=== PATIENT | female | born 1965 | race Caucasian/White ===

== ENCOUNTER 2024-11-21 06:42 | Day surgery (SDC) | payer OTHER ==
[2024-11-17 11:36] VITALS: BMI 27.2
[2024-11-21] MEDS ORDERED: ACETAMINOPHEN INJECTION 100 ML ONE (08:47)
[2024-11-21] MEDS ORDERED: LACTATED RINGERS SOLUTION 1,000 ML IV SCH (11:30)
[2024-11-21] MEDS ORDERED: MIDAZOLAM HCL 2 MG/2 ML SINGLE DOSE VIAL ONE (11:46)
[2024-11-21] MEDS ORDERED: PROPOFOL 20 ML ONE (11:53)
[2024-11-21] MEDS ORDERED: ONDANSETRON 4 MG/2 ML VIAL ONE (12:13)
[2024-11-21] MEDS ORDERED: KETOROLAC TROMETHAMINE 30 MG/1 ML VIAL ONE (12:13)
[2024-11-21] MEDS ORDERED: IBUPROFEN 600 MG TABLET (FP) PO PRN (12:27)
[2024-11-21] MEDS ORDERED: oxyCODONE HCL 5 MG TABLET PO PRN (12:27)
[2024-11-21] MEDS ORDERED: ONDANSETRON 4 MG/2 ML VIAL IVPUSH PRN (12:27)
[2024-11-21] MEDS ORDERED: IBUPROFEN 800 MG/8 ML IJ IVPB PRN (12:27)
[2024-11-21] MEDS ORDERED: ELECTROLYTE-148 SOLN 1,000 ML IV SCH (12:30)
[2024-11-21 13:27] VITALS: RESP 18
[2024-11-21 15:58] VITALS: BP 126/67; PULSE 60; TEMP 97.8
== END 2024-11-21 14:40 | disposition home or self-care (01) ==
LOC: JASU-SURG 06:42
PROVIDERS: ATTEND Obstetrics & Gynecology
PROC: 0UB98ZZ Excision of Uterus, Via Natural or Artificial Opening Endoscopic (ICD-10-PCS; principal; 2024-11-21 11:00)
DX: N95.0 Postmenopausal bleeding (principal); N84.0 Polyp of corpus uteri
CPT/HCPCS: 88305-TC; 94760